=== PATIENT | male | born 1995 | race Caucasian/White ===

== ENCOUNTER 2023-08-03 16:31 | Emergency (ER) | payer OTHER, SELFPAY ==
[2023-08-03] VITALS (7 sets, daily range): BP systolic 118–145; BP diastolic 79–88; PULSE 75–101; RESP 15–20; TEMP 36.6; O2SAT 98–100; BMI 29.5
--- NOTE | 2023-08-03 16:32 | ECG_ITS ---
APPROVED REPORT Exam: Resting ECG HR:75 bpm ECG Measurements Heart Rate 75 AXES AR 153 P 66 QRSd 114 QRS 80 QT 366 T 62 QTc 395 Conclusion SINUS RHYTHM Incomplete right bundle branch block Electronically signed by : DARRICK DYE, 08/03/2023 21:06:49
--- NOTE | 2023-08-03 16:42 | XR_ITS ---
PROCEDURE INFORMATION: Exam: XR Chest Exam date and time: 08/03/2023 4:58 PM Age: 28 years old Clinical indication: Sternal or substernal pain; Additional info: Cp TECHNIQUE: Imaging protocol: Radiologic exam of the chest. Views: 1 view. COMPARISON: No relevant prior studies available. FINDINGS: Lungs: Unremarkable. No consolidation. Pleural spaces: Unremarkable. No pleural effusion. No pneumothorax. Heart/Mediastinum: Unremarkable. No cardiomegaly. Bones/joints: Unremarkable for age. IMPRESSION: Negative chest exam.
[2023-08-03 16:48] LABS: Basophils # 0.2 K/mm3 (0-0.2); Basophils % 1.6 % (0.1-2.0); Eosinophils # 0.2 K/mm3 (0.0-0.4); Eosinophils % 1.8 % (0.1-12.0); Hematocrit 49.7 % (42.0-52.0); Hemoglobin 16.5 g/dL (14.1-18.0); Lymphocytes # 2.5 K/mm3 (0.7-4.5); Lymphocytes % 26.2 % (10-50); Mean Corpuscular HGB Conc 33.2 g/dL (31.8-35.4); Mean Corpuscular Hemoglobin 30.4 pg (27.0-31.2); Mean Corpuscular Volume 91.7 fl (80-94); Mean Platelet Volume 7.4 fl (7.4-10.4); Monocytes # 0.5 K/mm3 (0.1-1.0); Neutrophils # 6.2 K/mm3 (1.8-7.8); Neutrophils % 65.3 % (37.0-80.0); Platelet Count 347 K/mm3 (142-424); Red Blood Count 5.42 M/mm3 (4.60-6.20); Red Cell Distribution Width 12.9 % (11.5-17.5); White Blood Count 9.4 K/mm3 (4.8-10.8)
[2023-08-03 16:49] LABS: Chloride 108 mmol/L (98-107)
[2023-08-03 16:50] LABS: Potassium 3.7 mmoL/L (3.5-5.1); Sodium 142 mmol/L (136-145)
[2023-08-03 16:52] LABS: Alanine Aminotransferase 84 U/L (12-78); Aspartate Amino Transferase 47 U/L (17-59); Bilirubin,Total 0.5 mg/dl (0.2-1.3); Blood Urea Nitrogen 10 mg/dl (9-20); Creatinine Clearance Estimated 141 mL/min (50-200); Estimated Glomerular Filt Rate 89 ml/min (>60); GFR (African American) 108 ML/MIN (>60)
[2023-08-03 16:53] LABS: Albumin Level 4.3 g/dl (3.5-5.0); Albumin/Globulin Ratio 1.3 (1.1-1.8); Alkaline Phosphatase 79 U/L (38-126); Anion Gap 10.7 mEq/L (5-15); Calcium 9.5 mg/dl (8.4-10.2); Carbon Dioxide 27 mmol/L (22.0-30.0); Globulin 3.3 g/dL (1.3-3.2); Glucose 95 mg/dl (74-100); Total Protein,Serum 7.6 g/dl (6.3-8.2)
[2023-08-03] MEDS: MAGNESIUM SULFATE IN WATER 2 GM/50 ML PIGGYBACK IV (16:55)
[2023-08-03] MEDS: KETOROLAC 30MG/ML VIAL 15 MG IV (16:56)
[2023-08-03 17:03] LABS: NT Pro Brain Natriuretic Pep. 63.3 pg/mL (0-125)
[2023-08-03 17:11] LABS: Troponin I < 0.01 ng/ml (0.00-0.034)
--- NOTE | 2023-08-03 17:15 | PC.NURSE ---
PT SITTING ON THE SIDE OF THE BED. MOM AT BEDSIDE. NO NEEDS VOICED AT THIS TIME
--- NOTE | 2023-08-03 17:43 | ED_ITS ---
Discharge Plan Disposition Patient Disposition: Home, Self-Care Chief Complaint: Chest Pain Prescriptions Prescriptions: No Action No Known Home Medications Referrals Follow up/Referrals: Provider,Referral, MD [Primary Care Provider] - See instructions Activity Restrictions/Add. Instructions Additional Instructions/Restrictions: Call your family doctor to establish care for this visit to the emergency department and schedule follow-up within 48 hours to ensure improvement. If you have any worsening of your condition or any other concerning signs or symptoms, return to the emergency department or your primary care doctor for further evaluation. Clinical Impressions Clinical Impression: Chest pain Discharge ED Provider: [facility] Chief Complaint: Chest Pain Stated Complaint: Chest Pain Time Seen by Provider: 08/03/23 16:35 Mode of Arrival: Ambulatory Source of Information: Patient and Parent(s) Limitations: No Limitations Description of Symptoms (Recalled from ER Triage Doc. by RN): PRESENTS TO ER FOR CHEST PRESSURE IN THE CENTER OF HIS CHEST THAT STARTED ABOUT A WEEK AGO, REPORTS L ARM NUMBNESS/ TINGLING THAT STARTED ABOUT 3 DAYS AGO, DID RECENTLY LOSE HIS GRANDMOTHER AND HAS BEEN VERY UPSET ABOUT THAT, DENIES ANY HEART HX History of Present Illness HPI narrative: 28-year-old male history of autism presenting with chest pressure and arm tingling. Patient states that this been going on for about a week, family here to corroborate story. Left-sided facial tingling and arm numbness intermittently. Chest pressure is substernal, does not radiate, not made better by anything in particular, not exertional, not positional. Family states that patient recently had mother , with whom he spent all this time. Big changes for him, they think it is anxiety, but wanted to make sure it was not related to his heart. No other associated symptoms. Please note that above description of symptoms, in this electronic medical record under categorization of recalled from ER triage doctor by RN are reflective of an initial nursing assessment, however, is not reflective of my full history and physical exam that was personally taken and clarified. Consequentially, this preceding description of symptoms, which may include the patient's categorized chief complaint in the EMR, do not reflect my personal clinical impression, and the ultimate description of history of present illness and patient stated complaints should be deferred to this section of the note. Unless stated otherwise or congruent with this section of the note, additional signs, symptoms, or incongruence should be interpreted as inaccurate with my clinical impression. Related Data Home Medications Medication Instructions Recorded Confirmed No Known Home Medications 08/03/23 08/03/23 Allergies Allergy/AdvReac Type Severity Reaction Status Date / Time No Known Allergies Allergy Verified 08/03/23 16:[address] [facility] Disclaimer: The information contained in this section may have been updated after the patient was seen, as this information can be updated by other users. Social History Smoking Status: Never smoker alcohol intake: never current occupational status: unemployed Travel in the last 8 weeks: None ROS Obtained: Yes All systems reviewed & no additional complaints except as documented Physical Exam General General appearance: alert Neck Neck exam: Present trachea midline Chest Chest inspection: Present normal inspection and symmetric chest wall rise Respiratory Respiratory exam: Present normal lung sounds bilaterally; Absent respiratory distress, wheezes, stridor, accessory muscle use or prolonged expiratory phase Cardiovascular Cardiovascular exam: Present regular rate and normal rhythm Extremities Exam Extremities exam: Absent edema Neurological Exam Neurological exam: Present alert, oriented X3 and CN II-XII intact Skin Skin exam: Present warm and dry; Absent cyanosis, diaphoresis or pallor HEART Score HEART Score HEART Score assessment performed?: Yes HEART Score: 0 Procedures Limited Ultrasound Indication:: Limited cardiac ultrasound Indication: Chest pain Identified cardiac views: -Cardiac parasternal long axis -Cardiac parasternal short axis Findings: -Cardiac activity present -Gross wall motion normal -Pericardial effusion absent -Right heart strain absent Impression: -Normal cardiac ultrasound Images were saved to permanent archive The study was technically adequate CPT: 22130 This study was performed by me, and I personally interpreted all images/videos. Based on my clinical judgement, these images were adequate and did not necessitate further imaging. Critical Care Critical Care Time Critical Care Time: No Medical Decision Making Medical Records Medical records reviewed: Yes I reviewed the patient's medical records. Chidi Inquiry Pt receiving controlled substance: No Chidi was queried for this patient: No Vital Signs Vital Signs: 08/03/23 16:32 08/03/23 16:42 08/03/23 16:44 Temperature 97.9 F Temperature Source Oral Pulse Rate 101 H 88 Pulse Rate [Left Radial] 101 H Respiratory Rate 18 20 Blood Pressure Blood Pressure [Right Arm] 140/88 Blood Pressure Mean Blood Pressure Mean [Right Arm] 105 Blood Pressure Source [Right Arm] Automatic Cuff Blood Pressure Position [Right Arm] Sitting 02 Sat by Pulse Oximetry 99 98 Oxygen Delivery Method Room Air 08/03/23 17:00 08/03/23 17:31 08/03/23 18:01 Temperature Temperature Source Pulse Rate 78 80 80 Pulse Rate [Left Radial] Respiratory Rate 17 15 Blood Pressure 140/84 145/84 H 118/85 Blood Pressure [Right Arm] Blood Pressure Mean 103 97 101 Blood Pressure Mean [Right Arm] Blood Pressure Source [Right Arm] Blood Pressure Position [Right Arm] 02 Sat by Pulse Oximetry 98 98 100 Oxygen Delivery Method Lab Data Labs: Lab Results 08/03/23 16:30: WBC 9.4, RBC 5.42, Hgb 16.5, Hct 49.7, MCV 91.7, MCH 30.4, MCHC 33.2, RDW 12.9, Plt Count 347, MPV 7.4, Neut % (Auto) 65.3, Lymph % (Auto) 26.2, Alfalfa % (Auto) 5.0, Eos % (Auto) 1.8, Baso % (Auto) 1.6, Neut # (Auto) 6.2, Lymph # (Auto) 2.5, Alfalfa # (Auto) 0.5, Eos # (Auto) 0.2, Baso # (Auto) 0.2, Sodium 142, Potassium 3.7, Chloride 108 H, Carbon Dioxide 27, Anion Gap 10.7, BUN 10, Creatinine 1.00, Estimated Creat Clear 141, Estimated GFR 89, Est GFR ( Amer) 108, Glucose 95, Calcium 9.5, Total Bilirubin 0.5, AST 47, ALT 84 H, Alkaline Phosphatase 79, Troponin I < 0.01, NT-Pro-B Natriuret Pep 63.3, Total Protein 7.6, Albumin 4.3, Globulin 3.3 H, Albumin/Globulin Ratio 1.3 08/03/23 18:45: Troponin I < 0.01 08/03/23 16:30 08/03/23 16:30 Response Orders (Tests/Meds): ED MEDICATIONS Discontinued Medications Generic Name Dose Route Start Last Admin Trade Name Freq PRN Reason Stop Dose Admin Magnesium Sulfate 2 gm in 50 mls @ 50 mls/hr 08/03/23 16:42 08/03/23 16:55 Magnesium Sulfate 2gm/50ml Premix IV 08/03/23 17:41 50 mls/hr ONCE ONE Administration Ketorolac Tromethamine 15 mg 08/03/23 16:42 08/03/23 16:56 Ketorolac 30mg/Ml Vial IV 08/03/23 16:43 15 mg ONCE ONE Administration ORDERS Category Date Time Status CXR --portable [XR chest portable] Stat Exams 08/03/23 16:42 Completed POCUS Point of Care (ER Only) Stat Exams 08/03/23 18:32 Ordered CBC w/Auto Diff [Complete Blood Count Auto Diff] Stat Lab 08/03/23 16:30 Completed CMP [Comprehensive Metabolic Panel] Stat Lab 08/03/23 16:30 Completed NT Pro Brain Natriuretic Pep. Stat Lab 08/03/23 16:30 Completed Trop I [Troponin I] Stat Lab 08/03/23 16:30 Completed Troponin I Q3H Lab 08/03/23 18:45 Completed Troponin I Q3H Lab 08/03/23 22:45 Ordered MDM Narrative Medical Decision Narrative: 28-year-old male history of autism presenting with chest pressure and arm tingling. Patient states that this been going on for about a week, family here to corroborate story. Left-sided facial tingling and arm numbness intermittently. Chest pressure is substernal, does not radiate, not made better by anything in particular, not exertional, not positional. Family states that patient recently had mother , with whom he spent all this time. Big changes for him, they think it is anxiety, but wanted to make sure it was not related to his heart. No other associated symptoms. History obtained with patient and family. On arrival, patient hemodynamically stable, alert, oriented x4, appropriate, GCS 15, moving all extremities spontaneously, pupils equal and reactive to light. Full physical exam performed and significant for well- appearing male no acute distress. Pacing around the room. Lungs are clear to auscultation bilaterally anterior and posteriorly. Cardiac exam within normal limits, pulses equal and symmetric. Differential includes anxiety, microvascular coronary artery disease, CHF, ACS, NC, coronary artery dissection, pneumothorax, PE, dissection, pericarditis, myocarditis, pneumothorax, aortic aneurysm, pneumonia, bronchitis, among others. Workup independently interpreted and significant for nonactionable CBC or chemistry, initial troponin negative. Chest x-ray without acute cardiopulmonary airspace disease. See radiology read for full review of final results. Independent interpretation of EKG shows sinus rhythm 75 beats a minute without ST or T wave changes concerning for acute ischemia. Incomplete right bundle branch block. GA, QRS, QT intervals within normal limits. [place] normal. Patient was placed in observation beginning at 1845 in order to evolving NC with delta troponins and determine need for admission versus home-going. The patient was provided serial exams and monitoring while awaiting results. Independent interpretation of results demonstrated negative delta troponin. On reevaluation, patient resting comfortably in bed. Bedside ultrasound without acute concern for any cardiac abnormality. At this time, I feel patient is appropriate for discharge. Total observation time 3 hours. Because patient at baseline without signs or symptoms of clinical decompensation, deemed appropriate for discharge. Results were relayed to patient and family who voiced understanding and were agreeable to outpatient management and follow up. I discussed my clinical impression with patient and family and answered all questions. At this time, the evidence for any other entities in the differential is insufficient to warrant any further testing or ED observation. This was explained as well. Advisory was given that persistent or worsening symptoms require further evaluation. I confirmed the understanding of this discussion.
--- NOTE | 2023-08-03 18:41 | PC.NURSE ---
PT RESTING IN BED. MOM AT BEDSIDE. CALL LIGHT WITHIN REACH. NO QUESTIONS OR CONCERNS VOICED.
[2023-08-03 19:37] LABS: Troponin I < 0.01 ng/ml (0.00-0.034)
== END 2023-08-03 20:21 | disposition home or self-care (01) ==
PROVIDERS: Emergency Provider Emergency Medicine
DX: R07.9 Chest pain, unspecified (principal); R20.2 Paresthesia of skin; F84.0 Autistic disorder
CPT/HCPCS: 71045; 80053; 83880; 84484; 85025; 93005; 96365; 96375; 99285; J3475